=== PATIENT | male | born 1940 | race American Indian/Alaskan Native ===

== ENCOUNTER 2017-04-24 10:15 | Inpatient (IN) | payer MEDICARE ==
[2017-04-24 11:38] LABS: Basophils % (Auto) 0.6 % (0.0-1.8); Eosinophils % (Auto) 0.7 % (0.0-4.3); Hematocrit 39.4 % (35.5-45.6); Hemoglobin 13.1 gm/dl (11.8-15.2); Mean Corpuscular HGB Conc 33 % (32-34); Mean Corpuscular Hemoglobin 30 pg (28-32); Mean Corpuscular Volume 92 fl (84-94); Platelet Count 224 K/mm3 (140-440); White Blood Count 5.9 K/mm3 (4.5-11.0)
[2017-04-24 11:41] LABS: Alanine Aminotransferase 16 units/L (7-56); Albumin/Globulin Ratio 1.4 %; Alkaline Phosphatase 102 units/L (35-129); Anion Gap 17 mmol/L; BUN/Creatinine Ratio 18.33; Blood Urea Nitrogen 22 mg/dL (9-20); Calcium 8.7 mg/dL (8.4-10.2); Carbon Dioxide 26 mmol/L (22-30); Chloride 102.1 mmol/L (98-107); Glucose 98 mg/dL (75-100); Lipase 65 units/L (13-60); Potassium 3.8 mmol/L (3.6-5.0); Sodium 141 mmol/L (137-145); Total Protein 6.9 g/dL (6.3-8.2)
[2017-04-24 12:00] LABS: Bilirubin,Urine NEG (Negative); Blood,Urine NEG (Negative); Ketones,Urine NEG (Negative); Leukocyte Esterase,Urine NEG (Negative); Nitrite,Urine NEG (Negative); Protein,Urine <15 mg/dL mg/dL (Negative); Urobilinogen,Urine < 2.0 mg/dL (<2.0)
--- NOTE | 2017-04-24 14:58 | Emergency Department Report ---
HPI - General Chief Complaint: Abdominal Pain Time Seen by Provider: 04/24/17 14:51 - HPI HPI: This is a 77 year-old male presents the emergency department with 2 complaints. The first, and most concerning, complaint is left lower extremity weakness. The patient had some pain around his left knee last night but then woke up this morning and says he was unable to move it much. He attempted to stand up and/or walk and fell down secondary to the lower left extremity weakness. He denies any headache, vision change, slurred speech, facial asymmetry or any other neurological deficits. His second complaint is some lower abdominal pain. Patient says that he has a chronic history of this but it had gone away and just recently came back. He denies any nausea, vomiting, fever, dysuria or any problem with bowel movements. He has not taken anything for any of his symptoms prior to presentation. His past mental history includes osteoarthritis that required right hip replacement, borderline diabetes, history of remote prostate cancer, and hypertension. No recent travel or sick contacts at home. ED Past Medical Hx - Past Medical History Hx Hypertension: Yes Hx Diabetes: Yes (borderline) Hx of Cancer: Yes (prostate) Hx Arthritis: Yes - Surgical History Additional Surgical History: right hip replacement. left knee surgery - Social History Smoking Status: Former Smoker Substance Use Type: Alcohol - Medications Home Medications: Home Medications Medication Instructions Recorded Confirmed Last Taken Type Finasteride [Proscar] 5 mg PO QPM 04/24/17 04/24/17 04/23/17 History Losartan/Hydrochlorothiazide 1 each PO QAM 04/24/17 04/24/17 04/23/17 History [Losartan-Hctz 50-12.5 mg Tab] Tamsulosin [Flomax] 0.4 mg PO QPM 04/24/17 04/24/17 04/23/17 History ED Review of Systems ROS: Stated complaint: LT LEG/RT HIP Other details as noted in HPI Comment: All other systems reviewed and negative Constitutional: weakness. denies: chills, fever Eyes: denies: eye pain, eye discharge, vision change ENT: denies: ear pain, throat pain Respiratory: denies: cough, shortness of breath, wheezing Cardiovascular: denies: chest pain, palpitations Gastrointestinal: abdominal pain. denies: nausea, vomiting Genitourinary: denies: urgency, dysuria Musculoskeletal: arthralgia. denies: back pain Skin: denies: rash, lesions Neurological: weakness. denies: headache, numbness, paresthesias Physical Exam - Physical Exam Vital Signs: Vital Signs 04/24/17 10:53 Temperature 98.1 F Pulse Rate 63 Respiratory 18 Rate Blood Pressure 139/74 O2 Sat by Pulse 98 Oximetry Physical Exam: GENERAL: The patient is well-developed well-nourished. ENT: Normocephalic. Atraumatic. Patient has moist mucous membranes. EYES: Extraocular motions are intact. Pupils equal reactive to light bilaterally. No nystagmus. NECK: Supple. Trachea is mid line. CHEST/LUNGS: Clear to auscultation. There is no respiratory distress noted. HEART/CARDIOVASCULAR: Regular rhythm. Regular rate. There is no gallop rub or murmur. ABDOMEN: Abdomen is soft, nontender. Patient has normal bowel sounds. There is no abdominal distention. SKIN: Skin is warm and dry. NEURO: The patient is awake, alert, and oriented. The patient is cooperative. The patient has no sensory deficits. There is left lower extremity weakness. The patient is able to slightly lift the leg off of the gurney but it will hit the gurney after a very short time. The patient has normal speech. No facial asymmetry. No upper extremity pronator drift. No dysmetria. MUSCULOSKELETAL: There is no tenderness or deformity. There is no limitation range of motion. There is no evidence of acute injury. ED Course Vital Signs 04/24/17 10:53 Temperature 98.1 F Pulse Rate 63 Respiratory 18 Rate Blood Pressure 139/74 O2 Sat by Pulse 98 Oximetry ED Medical Decision Making - Lab Data Result diagrams: 04/24/17 11:06 04/24/17 11:06 - EKG Data -: EKG Interpreted by Me EKG shows normal: sinus rhythm, axis (left axis deviation), intervals, QRS complexes, ST-T waves Rate: bradycardia (50 bpm) - EKG Data When compared to previous EKG there are: previous EKG unavailable Interpretation: other (sinus bradycardia, left axis deviation) - Radiology Data Radiology results: report reviewed, image reviewed interpreted by me: Abdominal x-ray does not show any acute process. Possible constipation. CT of the head without contrast does not show any acute bleed, shift, mass. Microangiopathic and/or chronic ischemic changes. - Medical Decision Making 77-year-old male presents to the emergency department with left lower extremity weakness that started upon waking. He does have legitimate weakness to just his left lower extremity that is a muscle strength of about 2-3 out of 5. This is his only neurological deficit and on the NIH stroke scale he would be a 1. However the patient is outside of TPA window anyways as he woke up with these symptoms and there is no last time normal. CT of the head does not show any acute bleed, shift, mass or any acute process. Labs are grossly unremarkable do not show any etiology of his symptoms. He was given an aspirin after negative CT. He will be admitted to the hospital for further evaluation and possible MRI. He has been accepted for admission by the hospitalist, Dr. Garrido. - Differential Diagnosis CVA, TIA, neuropathy Critical Care Time: No Critical care attestation.: If time is entered above; I have spent that time in minutes in the direct care of this critically ill patient, excluding procedure time. ED Disposition Clinical Impression: Hypertensive urgency, Left leg weakness Disposition: OP ADMIT IP TO THIS HOSP Is pt being admited?: Yes Condition: Fair Time of Disposition: 17:37
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
[2017-04-24] MEDS ORDERED: BABY ASPIRIN PO ONE (15:47)
--- NOTE | 2017-04-24 16:01 | XRay Report ---
ABDOMEN RADIOGRAPHS INDICATION: Abdominal pain. COMPARISON: None similar. FINDINGS: Frontal supine and upright abdominal radiographs demonstrate nonobstructive bowel gas pattern. Colonic stool, most along the ascending colon. No focal suspicious calcifications or pneumatosis. Lung bases incompletely imaged. EKG lead. Right hip replacement. Numerous brachytherapy seeds. Pelvic vascular calcifications. CONCLUSION: 1. No evidence of bowel obstruction, though constipation not excluded. Please correlate. 2. Other findings, including few iatrogenic changes. Thank you for the opportunity to participate in this patient's care.
[2017-04-24] MEDS ORDERED: DULCOLAX PR PRN (16:41)
[2017-04-24] MEDS ORDERED: NORCO 5/325 PO PRN (16:41)
[2017-04-24] MEDS ORDERED: REGLAN PO PRN (16:41)
[2017-04-24] MEDS ORDERED: TYLENOL PO PRN (16:41)
[2017-04-24] MEDS ORDERED: ZOFRAN IV PRN (16:41)
[2017-04-24] MEDS ORDERED: MILK OF MAGNESIA PO PRN (16:41)
[2017-04-24] MEDS ORDERED: PHENERGAN PR PRN (16:41)
[2017-04-24] MEDS ORDERED: SODIUM CHLORIDE FLUSH SYRINGE 10 ML IV PRN (16:41)
[2017-04-24] MEDS ORDERED: PLAVIX PO ONE (16:47)
--- NOTE | 2017-04-24 16:53 | History and Physical Report ---
History of Present Illness Date of examination: 04/24/17 Chief complaint: Left leg weakness History of present illness: 77-year-old -[place] man with past medical history significant for hypertension, hyperlipidemia, diet-controlled diabetes mellitus, history of prostate cancer presented to the emergency department complaining of left-sided weakness that started this morning around 2:30 AM. Patient said his left leg was hurting since yesterday, the pain was throbbing, 10 out of 10 in intensity, with no radiation, with no aggravating or relieving factors. When he wake up around 2:30 he can't move his leg, he feel numb. Patient denied headache, chest pain, weakness in other parts of his body. REVIEW OF SYSTEMS: GENERAL: no weight change, no fatigue, no fever HEAD: no head ache EYES: no blurry vision, no acute visual loss EARS: no hearing loss, no discharge, no earache NOSE: no stuffiness, no sneezing, no discharge MOUTH, THROAT AND NECK: no bleeding gums, no sore throat, no swollen neck CARDIAC: no palpitations, no dyspnea on exertion, no orthopnea, no PND, no edema , no chest pain RESPIRATORY: no shortness of breath, no wheeze, no cough, no sputum, no hemoptysis, no asthma GI: no decreased appetite, no nausea, no vomiting, no dysphagia, no diarrhea, no constipation, no abdominal pain URINARY: no change in frequency, no urgency, no polyuria, no hematuria, no incontinence MUSCULOSKELETAL: no pain, no joint stiffness NEUROLOGIC: Numbness and weakness of the left lower extremity. HEMATOLOGIC: no anemia, no easy bruising SKIN: no rashes ENDOCRINE: no heat/cold intolerance, no polyuria, no polydipsia, no thyroid problems, no diabetes PSYCHIATRIC: no anxiety, no depression, no suicidal ideations Past History Past Medical History: diabetes, hypertension, hyperlipidemia Past Surgical History: total hip replacement, Other (left knee surgery) Social history: full code. denies: smoking, alcohol abuse, prescription drug abuse, IV drug use Family history: no significant family history Medications and Allergies Allergies Allergy/AdvReac Type Severity Reaction Status Date / Time No Known Allergies Allergy Unverified 04/24/17 10:52 Home Medications Medication Instructions Recorded Confirmed Last Taken Type Finasteride [Proscar] 5 mg PO QPM 04/24/17 04/24/17 04/23/17 History Losartan/Hydrochlorothiazide 1 each PO QAM 04/24/17 04/24/17 04/23/17 History [Losartan-Hctz 50-12.5 mg Tab] Tamsulosin [Flomax] 0.4 mg PO QPM 04/24/17 04/24/17 04/23/17 History Active Meds: Active Medications Acetaminophen (Tylenol) 650 mg PO Q4H PRN PRN Reason: Pain, Mild (1-3) Acetaminophen/Hydrocodone Bitart (Milo 5/325) 2 each PO Q6H PRN PRN Reason: Pain, Moderate (4-6) Aspirin (Aspirin) 325 mg PO QDAY JOCELYNE Bisacodyl (Dulcolax) 10 mg TX QDAY PRN PRN Reason: Constipation Clopidogrel Bisulfate (Plavix) 75 mg PO ONCE ONE Stop: 04/24/17 16:48 Docusate Sodium (Colace) 100 mg PO BID JOCELYNE Famotidine (Pepcid) 10 mg PO BID JOCELYNE Heparin Sodium (Porcine) (Heparin) 5,000 unit SUB-Q Q8HR JOCELYNE Magnesium Hydroxide (Milk Of Magnesia) 30 ml PO Q4H PRN PRN Reason: Constipation Metoclopramide HCl (Reglan) 10 mg PO Q6H PRN PRN Reason: Nausea And Vomiting Ondansetron HCl (Zofran) 4 mg IV Q8H PRN PRN Reason: N/V unrelieved by Reglan Promethazine HCl (Phenergan) 25 mg TX Q6H PRN PRN Reason: Nausea And Vomiting Simvastatin (Zocor) 20 mg PO QHS JOCELYNE Sodium Chloride (Sodium Chloride Flush Syringe 10 Ml) 10 ml INJ PRN PRN PRN Reason: LINE FLUSH Exam - Physical Exam Narrative exam: Not in cardiopulmonary distress. The patient is obese. Vital signs as documented. Head exam is unremarkable. No scleral icterus . Neck is without jugular venous distension, thyromegaly, or carotid bruits. Lungs are clear to auscultation. Cardiac exam reveals regular rate and Rhythm. First and second heart sounds normal. No murmurs, rubs or gallops. Abdominal exam reveals normal bowel sounds, no masses, no organomegaly and no aortic enlargement. Extremities are nonedematous and both femoral and pedal pulses are normal. 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 - Constitutional Vitals: Temp Pulse Resp BP Pulse Ox 97.5 F L 52 L 18 181/97 100 04/24/17 15:02 04/24/17 15:02 04/24/17 15:02 04/24/17 15:02 04/24/17 15:02 Results - Labs CBC & Chem 7: 04/24/17 11:06 04/24/17 11:06 Labs: Laboratory Last Values WBC 5.9 K/mm3 (4.5-11.0) 04/24/17 11:06 RBC 4.30 M/mm3 (3.65-5.03) 04/24/17 11:06 Hgb 13.1 gm/dl (11.8-15.2) 04/24/17 11:06 Hct 39.4 % (35.5-45.6) 04/24/17 11:06 MCV 92 fl (84-94) 04/24/17 11:06 MCH 30 pg (28-32) 04/24/17 11:06 MCHC 33 % (32-34) 04/24/17 11:06 RDW 14.0 % (13.2-15.2) 04/24/17 11:06 Plt Count 224 K/mm3 (140-440) 04/24/17 11:06 Lymph % (Auto) 22.7 % (13.4-35.0) 04/24/17 11:06 Riley % (Auto) 8.0 % (0.0-7.3) H 04/24/17 11:06 Eos % (Auto) 0.7 % (0.0-4.3) 04/24/17 11:06 Baso % (Auto) 0.6 % (0.0-1.8) 04/24/17 11:06 Lymph # 1.3 K/mm3 (1.2-5.4) 04/24/17 11:06 Riley # 0.5 K/mm3 (0.0-0.8) 04/24/17 11:06 Eos # 0.0 K/mm3 (0.0-0.4) 04/24/17 11:06 Baso # 0.0 K/mm3 (0.0-0.1) 04/24/17 11:06 Seg Neutrophils % 68.0 % (40.0-70.0) 04/24/17 11:06 Seg Neutrophils # 4.0 K/mm3 (1.8-7.7) 04/24/17 11:06 Sodium 141 mmol/L (137-145) 04/24/17 11:06 Potassium 3.8 mmol/L (3.6-5.0) 04/24/17 11:06 Chloride 102.1 mmol/L (98-107) 04/24/17 11:06 Carbon Dioxide 26 mmol/L (22-30) 04/24/17 11:06 Anion Gap 17 mmol/L 04/24/17 11:06 BUN 22 mg/dL (9-20) H 04/24/17 11:06 Creatinine 1.2 mg/dL (0.8-1.5) 04/24/17 11:06 Estimated GFR > 60 ml/min 04/24/17 11:06 BUN/Creatinine Ratio 18.33 % 04/24/17 11:06 Glucose 98 mg/dL (75-100) 04/24/17 11:06 Calcium 8.7 mg/dL (8.4-10.2) 04/24/17 11:06 Total Bilirubin 0.50 mg/dL (0.1-1.2) 04/24/17 11:06 AST 24 units/L (5-40) 04/24/17 11:06 ALT 16 units/L (7-56) 04/24/17 11:06 Alkaline Phosphatase 102 units/L (35-129) 04/24/17 11:06 Troponin T < 0.010 ng/mL (0.00-0.029) 04/24/17 15:54 Total Protein 6.9 g/dL (6.3-8.2) 04/24/17 11:06 Albumin 4.0 g/dL (3.9-5) 04/24/17 11:06 Albumin/Globulin Ratio 1.4 % 04/24/17 11:06 Lipase 65 units/L (13-60) H 04/24/17 11:06 Urine Color Yellow (Yellow) 04/24/17 Unknown Urine Turbidity Clear (Clear) 04/24/17 Unknown Urine pH 5.0 (5.0-7.0) 04/24/17 Unknown Ur Specific Phelan 1.023 (1.003-1.030) 04/24/17 Unknown Urine Protein <15 mg/dl mg/dL (Negative) 04/24/17 Unknown Urine Glucose (UA) Neg mg/dL (Negative) 04/24/17 Unknown Urine Ketones Neg mg/dL (Negative) 04/24/17 Unknown Urine Blood Neg (Negative) 04/24/17 Unknown Urine Nitrite Neg (Negative) 04/24/17 Unknown Ur Reducing Substances Not Reportable 04/24/17 Unknown Urine Bilirubin Neg (Negative) 04/24/17 Unknown Urine Ictotest Not Reportable 04/24/17 Unknown Urine Urobilinogen < 2.0 mg/dL (<2.0) 04/24/17 Unknown Ur Leukocyte Esterase Neg (Negative) 04/24/17 Unknown Urine WBC (Auto) 1.0 /HPF (0.0-6.0) 04/24/17 Unknown Urine RBC (Auto) 1.0 /HPF (0.0-6.0) 04/24/17 Unknown - Imaging and Cardiology CT Scan - head: report reviewed (no acute intracranial process identified) Assessment and Plan Assessment and plan: Left leg weakness CVA Uncontrolled hypertension Hyperlipidemia Diet-controlled diabetes mellitus type 2 - CVA workup, MRI/MRA, carotid Doppler, echo - Lipid panel - The patient on aspirin, Plavix, statin - Resume appropriate home medications DVT prophylaxis - Heparin Disposition -Admit to telemetry floor Advance Directives: Yes VTE prophylaxis?: Chemical Plan of care discussed with patient/family: Yes
[2017-04-24] MEDS ORDERED: APRESOLINE IV PRN (16:57)
[2017-04-24] MEDS ORDERED: FLOMAX PO SCH (18:00)
[2017-04-24] MEDS: PEPCID PO SCH (21:38)
[2017-04-24] MEDS: COLACE PO SCH (21:38)
[2017-04-24] MEDS: ZOCOR PO SCH (21:39)
[2017-04-24] MEDS: PROSCAR PO SCH (21:39)
[2017-04-24] MEDS: HEPARIN SUB-Q SCH (21:40)
[2017-04-25] MEDS: HEPARIN SUB-Q SCH ×3 (05:21→22:38)
[2017-04-25 06:26] LABS: Anion Gap 13 mmol/L; Blood Urea Nitrogen 21 mg/dL (9-20); Calcium 8.2 mg/dL (8.4-10.2); Carbon Dioxide 25 mmol/L (22-30); Chloride 104.8 mmol/L (98-107); Cholesterol 151 mg/dL (50-199); Glucose 103 mg/dL (75-100); HDL Cholesterol 41 mg/dL (40-59); LDL Cholesterol,Direct 92 mg/dL (50-130); Potassium 3.7 mmol/L (3.6-5.0); Sodium 139 mmol/L (137-145); Triglycerides 90 mg/dL (2-149)
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
--- NOTE | 2017-04-25 11:32 | XRay Report ---
LEFT KNEE RADIOGRAPHS INDICATION: Fall, left knee pain. COMPARISON: None similar. FINDINGS: AP, lateral and oblique left knee radiographs demonstrate moderate to severe medial compartment narrowing. Mild to moderate degenerative spurring throughout. Patellofemoral narrowing also not excluded. Prepatellar soft tissue swelling suspected, some also extending both superiorly and inferiorly. Few atherosclerotic calcifications. Possible osteopenia. CONCLUSION: No acute left knee bony abnormality with moderate degenerative changes and anterior soft tissue swelling suspected, as described. Please correlate. Thank you for the opportunity to participate in this patient's care.
--- NOTE | 2017-04-25 11:39 | Admit Criteria Form ---
Admission Criteria Documentation: NEUROLOGY GRG Clinical Indications for Admission to Inpatient Care (Place ' X' for any and all applicable criteria): Hospital admission is needed for appropriate care of the patient because of 1 or more of the following: [ ]I. Encephalitis [ ]II. Severe VENEER PATCHER infections indicated by 1 or more of the following(1)(2)(3) : [ ]a) Intracranial abscess [ ]b) Spinal abscess or myelitis [ ]c) Tuberculous or other nonbacterial, nonviral VENEER PATCHER infection(8) [ ]III. Vasculitis and 1 or more of the following(14)(15): []a) Altered mental status that is severe or persistent or other acute neurologic change []b) Psychosis []c) Seizure [ ]IV. Status epilepticus or repetitive seizures not controlled with emergent treatment [A] (7)(8) [ ]V. Altered mental status that is severe or persistent [ ]. Transient alteration in consciousness with high-risk etiology; examples include (12)(13): [ ]a) Cardiovascular source [ ]b) Cataplexy [ ]VII. Cerebral aneurysm requiring ANY ONE of the following(14): [ ]a) IV antihypertensives or vasoactive agents [ ]b) Sedation and analgesia for suspected leak [ ]c) Need for external ventricular drainage and cerebral perfusion pressure monitoring [ ]d) Emergent evaluation to determine need for surgical clipping or endovascular coiling by interventional radiology. If surgery is required ( Also use Craniotomy, Supratentorial, for Surgery of Bleeding Intracranial Aneurysm (for bleeding aneurysm) or Craniotomy, Supratentorial (for nonbleeding aneurysm) as appropriate. [ ]VIII. New-onset severe neurologic symptom requiring inpatient care indicated by ANY ONE of the following: [ ]a) Aphasia(15) [ ]b) Weakness (grade 3 or less) [ ]c) Paralysis (eg, hemiplegia) [ ]d) Spasticity(16) [ ]e) Dystonia [ ]e) Ataxia(17) [ ]f) Amnesia(18) [ ]g) Involuntary movements(19) [ ]h) Vertigo [ ] Visual loss [ ]i) Other severe neurologic finding (eg, papilledema, mass effect on imaging, myoclonus not treatable at alternative level of care (eg, observation care) [ ]IX. Guillain-Auburn syndrome(20) [ ]X. Myasthenia gravis crisis or inpatient monitoring need as indicated by 1 or more of the following(21): [ ]a) Intensive treatment (eg, course of plasmapheresis) with inadequate outpatient situation to monitor patients status [ ]b) Inadequate airway protection [ ]c) Respiratory insufficiency requiring intubation or inpatient. monitoring [ ]d) Progressive dysphagia with failure to thrive [ ]XI. Multiple sclerosis or other acute demyelinating disease requiring inpatient care as indicated by 1 or more of the following (22)(23): [ ]a) Acute severe deterioration requiring inpatient treatment (eg, IV steroids, plasmapheresis, close observation) [ ]b) Acute complication requiring inpatient care (eg, sepsis, severe decubitus, aspiration) [ ]XII.Parkinson disease requiring inpatient care (Also use Optimal Recovery Care Criteria or General Recovery Criteria as appropriate) indicated by 1 or more of the following(25): [ ]a) Infection (eg, aspiration pneumonia) not treatable at alternative level of care [ ]b Dehydration that is severe or persistent [ ]c) Life-threatening agitation or psychotic behavior not treatable on emergency, observation care, or alternative level (eg, residential) basis [ ]d) Severe medication withdrawal effects (eg, freezing, neuroleptic malignant syndrome) not responsive to emergency and observation care treatment ( as appropriate) [ ]e) Other severe manifestation not treatable at alternative level of care [ ]XII. Amyotrophic lateral sclerosis with inpatient care needs as indicated by ANY ONE of the following(26): [ ]a) Acute complications (eg, aspiration pneumonia, sepsis ) requiring inpatient care ( see other optimal Recovery Guideline as appropriate) [ ]b) Dehydration that is severe persistent AND artificial support desired [ ]c) Inadequate airway protection AND artificial support desired [ ]d) Severe ventilatory insufficiency AND artificial support desired [ ]XIII. Myasthenia gravis crisis or inpatient monitoring need as indicated by 1 or more of the following(21): [] a) Inadequate airway protection []b) Respiratory insufficiency requiring intubation or inpatient monitoring []c) Progressive dysphagia with failure to thrive []d) Intensive treatment (e.g., course of plasmapheresis) with inadequate outpatient situation to monitor patients status [ ]XIV. Multiple sclerosis or other acute demyelinating disease requiring inpatient care indicated by 1 or more of the following[C](36)(43)(44)(45)(46): []a) Acute severe deterioration requiring inpatient treatment (eg, IV steroids, plasmapheresis, close observation) []b) Acute complication requiring inpatient care (eg, sepsis, severe decubitus, aspiration) [ ]XV. Intracranial hypertension (e.g., pseudotumor cerebri) requiring inpatient care (e.g., acute visual loss, inadequate oral intake) (47)(48)(49) [ ]XVI. Parkinson disease requiring inpatient care (Also use Optimal Recovery Care Criteria or General Recovery Criteria as appropriate) indicated by 1 or more of the following(25): [] a) Infection (e.g., aspiration pneumonia) not treatable at alternative level of care []b) Volume depletion not responsive to emergency and observation care treatment (as appropriate) []c) Life-threatening agitation or psychotic behavior not treatable on emergency, observation care, or alternative level (e.g., residential) basis []d) Severe medication withdrawal effects (e.g., freezing, neuroleptic malignant syndrome) not responsive to emergency and observation care treatment (as appropriate) []e) Other severe manifestation not treatable at alternative level of care [ ]XVII. Amyotrophic lateral sclerosis with inpatient care needs as indicated by1 or more of the following(42): []a) Acute complications (eg, aspiration pneumonia, sepsis) requiring inpatient care (see other Optimal Recovery Guideline or General Recovery Guideline as appropriate) []b) Dehydration that is severe or persistent AND artificial support desired []c) Inadequate airway protection AND artificial support desired []d) Severe ventilatory insufficiency AND artificial support desired [ ]XVIII. Severe myopathy, neuropathy, or other neuromuscular disease indicated by 1 or more of the following(42)(52)(53)(54): []a ) New-onset severe diffuse weakness (eg, strength 3/5 or less) []b) Severe dysphagia []c) Dyspnea at rest or with minimal exertion (new) []d) Inadequate airway protection []e) Inadequate ventilation indicated by 1 or more of the following : i) Partial pressure of carbon dioxide greater than 44 mm Hg ( 5.9 kPa) (new) ii) Reduced peak expiratory flow rate (new) iii) Vital capacity less than 50% of predicted (less than 15 mL/kg) iv) Peak inspiratory force less negative than -30 cm H2O (- 2942 Pa) [ ]XVII.Complications of congenital or degenerative disease (eg, infection, seizures, dehydration, injury) not responsive to emergency and observation care treatment (as appropriate ) [C](16)(29)(30) [ ]XVIII.Suspected or confirmed nerve or muscle toxic injury, including ANY ONE of the following: [ ]a) Rhabdomyolysis(31) i) Acute renal failure ii) Dehydration that is severe or persistent iii) Altered mental status that is severe or persistent iv) Electrolyte abnormality that remains after emergency or observation level care ( as appropriate) [ ]b) Botulism(32) [ ]c) Other severe toxin-induced sign or symptom [ ]XIX. Neurologic trauma requiring inpatient treatment (medical) indicated by ANY ONE of the following(33)(34): [ ]a) Vital signs or neurologic signs more frequently than every 4 hours [ ]b) Hyperosmolar therapy [ ]c) Respiratory monitoring [ ]d) Intracranial pressure monitoring and treatment [ ]e) Stabilization and immobilization device placement (eg, braces, body jacket) [ ]f) Intubation & mechanical ventilation for airway protection or therapeutic hyperventilation [ ]g) Other treatment or monitoring needed that requires inpatient level of care [ ]XX.Complications of neurologic devices (eg, ventricular shunt, neurostimulator) requiring 1 or more of the following(35)(36): [ ]a) IV antibiotics with monitoring while awaiting culture results [ ]b) Monitoring for hydrocephalus [X ]XXI. Neurology condition symptom, or finding for which emergency and observation care have failed or are not considered appropriate. See General Criteria: Observation Care ISC, General Admission Criteria GRG, or Pediatric General Admission Criteria GRG guideline as appropriate. The original [facility] [employer] content created by [facility] has been revised. The portions of the content which have been revised are identified through the use of italic text or in bold, and [facility] has neither reviewed nor approved the modified material. All other unmodified content is copyright [facility] Please see references footnoted in the original [facility] edition 2016 Admission Criteria Met: Yes
[2017-04-25] MEDS ORDERED: Fluarix Quad 2017-2018(36 MOS+) IM ONE (12:00)
[2017-04-25] MEDS: COLACE PO SCH ×2 (12:36→21:39)
[2017-04-25] MEDS: PEPCID PO SCH ×2 (12:36→21:39)
[2017-04-25] MEDS: ASPIRIN PO SCH (12:36)
[2017-04-25] MEDS: FLOMAX PO SCH (12:43)
--- NOTE | 2017-04-25 13:20 | Consultation ---
History of Present Illness - Reason for Consult Consult date: 04/25/17 stroke - History of Present Illness patient seen and plan to check the MRI the CT of brain shows small vessel disease rec statin and aspirin HTN control Past History Past Medical History: diabetes, hypertension, hyperlipidemia Past Surgical History: total hip replacement, Other (left knee surgery) Social history: full code. denies: smoking, alcohol abuse, prescription drug abuse, IV drug use Family history: no significant family history Medications and Allergies Allergies Allergy/AdvReac Type Severity Reaction Status Date / Time No Known Allergies Allergy Unverified 04/24/17 10:52 Home Medications Medication Instructions Recorded Confirmed Last Taken Type Finasteride [Proscar] 5 mg PO QPM 04/24/17 04/24/17 04/23/17 History Losartan/Hydrochlorothiazide 1 each PO QAM 04/24/17 04/24/17 04/23/17 History [Losartan-Hctz 50-12.5 mg Tab] Tamsulosin [Flomax] 0.4 mg PO QPM 04/24/17 04/24/17 04/23/17 History Active Meds: Active Medications Acetaminophen (Tylenol) 650 mg PO Q4H PRN PRN Reason: Pain, Mild (1-3) Acetaminophen/Hydrocodone Bitart ([place] 5/325) 2 each PO Q6H PRN PRN Reason: Pain, Moderate (4-6) Aspirin (Aspirin) 325 mg PO QDAY [facility] Last Admin: 04/25/17 12:36 Dose: 325 mg Bisacodyl (Dulcolax) 10 mg [place] QDAY PRN PRN Reason: Constipation Docusate Sodium (Colace) 100 mg PO BID [facility] Last Admin: 04/25/17 12:36 Dose: 100 mg Famotidine (Pepcid) 10 mg PO BID [facility] Last Admin: 04/25/17 12:36 Dose: 10 mg Finasteride (Proscar) 5 mg PO QPM [facility] Last Admin: 04/24/17 21:39 Dose: 5 mg Heparin Sodium (Porcine) (Heparin) 5,000 unit SUB-Q Q8HR [facility] Last Admin: 04/25/17 05:21 Dose: 5,000 unit Hydralazine HCl (Apresoline) 10 mg IV Q4H PRN PRN Reason: Hypertension Magnesium Hydroxide (Milk Of Magnesia) 30 ml PO Q4H PRN PRN Reason: Constipation Metoclopramide HCl (Reglan) 10 mg PO Q6H PRN PRN Reason: Nausea And Vomiting Ondansetron HCl (Zofran) 4 mg IV Q8H PRN PRN Reason: N/V unrelieved by Reglan Promethazine HCl (Phenergan) 25 mg IA Q6H PRN PRN Reason: Nausea And Vomiting Simvastatin (Zocor) 20 mg PO QHS [facility] Last Admin: 04/24/17 21:39 Dose: 20 mg Sodium Chloride (Sodium Chloride Flush Syringe 10 Ml) 10 ml IV PRN PRN PRN Reason: LINE FLUSH Tamsulosin HCl (Flomax) 0.4 mg PO [facility] Last Admin: 04/25/17 12:43 Dose: 0.4 mg Exam - Constitutional Vitals: Temp Pulse Resp BP Pulse Ox 98.8 F 54 L 20 131/60 98 04/25/17 05:37 04/25/17 08:00 04/25/17 05:37 04/25/17 05:37 04/25/17 05:37 Results - Labs CBC & Chem 7: 04/24/17 11:06 04/25/17 05:38 Labs: Abnormal lab results 04/25/17 Range/Units 05:38 BUN 21 H (9-20) mg/dL Glucose 103 H (75-100) mg/dL Calcium 8.2 L (8.4-10.2) mg/dL
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
--- NOTE | 2017-04-25 16:02 | Consultation ---
History of Present Illness - Reason for Consult Consult date: 04/25/17 stroke - History of Present Illness came back to check reports of carotid u/s Past History Past Medical History: diabetes, hypertension, hyperlipidemia Past Surgical History: total hip replacement, Other (left knee surgery) Social history: full code. denies: smoking, alcohol abuse, prescription drug abuse, IV drug use Family history: no significant family history Medications and Allergies Allergies Allergy/AdvReac Type Severity Reaction Status Date / Time No Known Allergies Allergy Unverified 04/24/17 10:52 Home Medications Medication Instructions Recorded Confirmed Last Taken Type Finasteride [Proscar] 5 mg PO QPM 04/24/17 04/24/17 04/23/17 History Losartan/Hydrochlorothiazide 1 each PO QAM 04/24/17 04/24/17 04/23/17 History [Losartan-Hctz 50-12.5 mg Tab] Tamsulosin [Flomax] 0.4 mg PO QPM 04/24/17 04/24/17 04/23/17 History Active Meds: Active Medications Acetaminophen (Tylenol) 650 mg PO Q4H PRN PRN Reason: Pain, Mild (1-3) Acetaminophen/Hydrocodone Bitart ([place] 5/325) 2 each PO Q6H PRN PRN Reason: Pain, Moderate (4-6) Aspirin (Aspirin) 325 mg PO QDAY [facility] Last Admin: 04/25/17 12:36 Dose: 325 mg Bisacodyl (Dulcolax) 10 mg HI QDAY PRN PRN Reason: Constipation Docusate Sodium (Colace) 100 mg PO BID [facility] Last Admin: 04/25/17 12:36 Dose: 100 mg Famotidine (Pepcid) 10 mg PO BID [facility] Last Admin: 04/25/17 12:36 Dose: 10 mg Finasteride (Proscar) 5 mg PO QPM [facility] Last Admin: 04/24/17 21:39 Dose: 5 mg Heparin Sodium (Porcine) (Heparin) 5,000 unit SUB-Q Q8HR [facility] Last Admin: 04/25/17 05:21 Dose: 5,000 unit Hydralazine HCl (Apresoline) 10 mg IV Q4H PRN PRN Reason: Hypertension Magnesium Hydroxide (Milk Of Magnesia) 30 ml PO Q4H PRN PRN Reason: Constipation Metoclopramide HCl (Reglan) 10 mg PO Q6H PRN PRN Reason: Nausea And Vomiting Ondansetron HCl (Zofran) 4 mg IV Q8H PRN PRN Reason: N/V unrelieved by Reglan Promethazine HCl (Phenergan) 25 mg HI Q6H PRN PRN Reason: Nausea And Vomiting Simvastatin (Zocor) 20 mg PO QHS [facility] Last Admin: 04/24/17 21:39 Dose: 20 mg Sodium Chloride (Sodium Chloride Flush Syringe 10 Ml) 10 ml IV PRN PRN PRN Reason: LINE FLUSH Tamsulosin HCl (Flomax) [facility] [place] [facility] Last Admin: 04/25/17 12:43 Dose: 0.4 mg Exam - Constitutional Vitals: Temp Pulse Resp BP Pulse Ox 97.6 F 66 20 139/64 96 04/25/17 11:50 04/25/17 11:50 04/25/17 11:50 04/25/17 11:50 04/25/17 11:50 Results - Labs CBC & Chem 7: 04/24/17 11:06 04/25/17 05:38 Labs: Abnormal lab results 04/25/17 Range/Units 05:38 BUN 21 H (9-20) mg/dL Glucose 103 H (75-100) mg/dL Calcium 8.2 L (8.4-10.2) mg/dL
[2017-04-25] MEDS: PROSCAR PO SCH (17:58)
[2017-04-25] MEDS: ZOCOR PO SCH (21:39)
[2017-04-26] MEDS: HEPARIN SUB-Q SCH (06:50)
[2017-04-26 08:08] VITALS: BP 117/66
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
[2017-04-26] MEDS: ASPIRIN PO SCH (12:51)
[2017-04-26] MEDS: FLOMAX PO SCH (12:51)
[2017-04-26] MEDS: PEPCID PO SCH (12:51)
[2017-04-26] MEDS: COLACE PO SCH (12:52)
--- NOTE | 2017-04-29 09:24 | Vascular Lab Report ---
CAROTID DUPLEX STUDY: RIGHT PSVEDV CCA PROX: 8812 CCA DIST: 6513 ICA PROX: 6210 ICA MID: 5312 ICA DIST: 5319 ECA: 47 VERT: 35 7 LEFT PSVEDV CCA PROX:34125 CCA DIST: 6211 ICA PROX: 4917 ICA MID: 6514 ICA DIST: 7122 ECA: 76 VERT: 40 8 REASON FOR EXAM: Stroke. COMMENTS ON THE RIGHT: Doppler frequency analysis is consistent with 16 to 49 percent diameter reduction of the internal carotid artery. Minimal amount of plaque is seen. The common carotid artery is patent. The external carotid artery is patent. The vertebral artery has antegrade flow. COMMENTS ON THE LEFT: Doppler frequency analysis is consistent with 16 to 49 percent diameter reduction of the internal carotid artery. Minimal amount of plaque is seen. The common carotid artery is patent. The external carotid artery is patent. The vertebral artery has antegrade flow. IMPRESSION: Less than 50% diameter reduction in the internal carotid arteries bilaterally. Consider repeat carotid artery duplex in 12 months.
== END 2017-04-26 13:45 | disposition home health service (06) | DRG 66 ==
LOC: ED 10:15 → 4A 16:42
PROVIDERS: ADMIT Internal Medicine; ATTEND Internal Medicine
PROC: 3E0234Z Introduction of Serum, Toxoid and Vaccine into Muscle, Percutaneous Approach (ICD-10-PCS; principal; 2017-04-25)
DX: I63.9 Cerebral infarction, unspecified (principal); E78.5 Hyperlipidemia, unspecified; I16.0 Hypertensive urgency; E11.9 Type 2 diabetes mellitus without complications; M19.90 Unspecified osteoarthritis, unspecified site; Z96.641 Presence of right artificial hip joint; Z23 Encounter for immunization; Z79.899 Other long term (current) drug therapy; Z85.46 Personal history of malignant neoplasm of prostate; Z87.891 Personal history of nicotine dependence
CPT/HCPCS: 36415; 70450; 71020; 74020; 80048; 80053; 80061; 81001; 83036; 83690; 84484; 85025; 90686; 93005; 93010; 93306; 93880; G8978-GP; G8979-GP; J1644

== ENCOUNTER 2018-05-20 12:46 | Emergency (ER) | payer MEDICARE ==
[2018-05-20 12:55] VITALS: BP 136/53
[2018-05-20] MEDS ORDERED: MOTRIN PO ONE (14:43)
[2018-05-20] MEDS ORDERED: THERMAZENE 50 GRAM TP ONE (14:43)
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
== END 2018-05-20 16:04 | disposition home or self-care (01) ==
LOC: ED 12:46
DX: T23.201A Burn of second degree of right hand, unspecified site, initial encounter (principal); X19.XXXA Contact with other heat and hot substances, initial encounter; Y93.89 Activity, other specified; Y92.89 Other specified places as the place of occurrence of the external cause; Y99.8 Other external cause status

== ENCOUNTER 2019-03-03 19:55 | Inpatient (IN) | payer MEDICARE ==
--- NOTE | 2019-03-03 20:23 | Consultation ---
History of Present Illness History of present illness: [facility] Impression: Patient with worsening LLE weakness and burning sensation in the LLE. Given density of weakness, will get CTA to rule out LVO of the right ASHLEY. Burning sensation might argue for a peripheral etiology, as well. Not a tpa candidate due to: out of window Differential Diagnosis: 1. Cardioembolic stroke 2. Small vessel disease/lacune 3. Thromboembolic, [id number] mechanism 4. Hypercoagulable state-related infarct 5. Transient ischemic attack 6. Thrombotic mechanism, large artery disease Comments: Door time: 1954 [facility] contacted: 1948 [facility] at bedside: 1952 NIHSS assessment time: 2014 (pt went to CT on arrival) Recommendations: CTA head/neck for LVO evaluation inpatient neurology consultation Inpatient stroke evaluation as per Neurology/ Internal Medicine Discussed with ED MD CC: stroke alert History of Present Illness Patient is a79 year old man with a history of HTN, HLD, stroke with residual left-sided weakness/numbness who presents with worsening LLE weakness. He states he was last baseline around 1400, then thereafter started to develop gradually worsening weakness in the LLE to where he couldn't move it at all. He is also noting a burning sensation in the LLE. No other new deficits. Diagnostic: CT head wo - nothing acute Exam: NIHSS score: 5 Medical Decision Making: - Extensive number of diagnosis or management options are considered above. - Extensive amount of complex data reviewed. - High risk of complication and/or morbidity or mortality are associated with differential diagnostic considerations above. - There may be Uncertain outcome and increased probability of prolonged functional impairment or high probability of severe prolonged functional impairment associated with some of these differential diagnosis. Medical Data Reviewed: 1.Data reviewed include clinical labs, radiology, Medical Tests; 2.Tests results discussed w/performing or interpreting physician; 3.Obtaining/reviewing old medical records; 4.Obtaining case history from another source; 5.Independent review of image, tracing or specimen. Patient was informed the Neurology Consult would happen via TeleHealth consult by way of interactive audio and video telecommunications and consented to receiving care in this manner. Medications and Allergies Allergies Allergy/AdvReac Type Severity Reaction Status Date / Time No Known Allergies Allergy Verified 05/20/18 12:53 Home Medications Medication Instructions Recorded Confirmed Last Taken Type Aspirin 81 mg PO DAILY #30 tab.chew 04/26/17 12/28/18 Unknown Rx AtorvaSTATin [Lipitor] 40 mg PO QHS #30 tab 04/26/17 Unknown Rx Clopidogrel Bisulfate [Plavix] 75 mg PO DAILY #30 tablet 04/26/17 12/28/18 Unknown Rx Finasteride [Proscar] 5 mg PO QPM #30 tablet 04/26/17 12/28/18 Unknown Rx Tamsulosin [Flomax] 0.4 mg PO QPM #30 capsule 04/26/17 Unknown Rx Clindamycin [Clindamycin CAP] 300 mg PO Q8H 7 Days cap 05/20/18 Unknown Rx HYDROcodone/APAP 5-325 [[place] 1 each PO Q6HR PRN #15 tablet 05/20/18 12/28/18 Unknown Rx 5/325] - Level of Consciousness 1a. Level of Consciousness: alert/keenly responsive - LOC Questions 1b. LOC Questions: answers both correctly - LOC Command 1c. LOC Commands: performs tasks correctly - Best Gaze 2. Best Gaze: normal - Visual 3. Visual: no visual loss - Facial Palsy 4. Facial Palsy: normal symmetrical movement - Motor Arm 5a. Motor Arm Left: no drift 5b. Motor Arm Right: no drift - Motor Leg 6a. Motor Leg Left: no drift 6b. Motor Leg Right: no movement - Limb Ataxia 7. Limb Ataxia: absent - Sensory 8. Sensory: mild/moderate sensory loss - Best Language 9. Best Language: no aphasia - Dysarthria 10. Dysarthria: normal - Extinction and Inattention 11. Extinction/Inattention: no abnormality - Scoring Total Score: 5 Stroke Severity: Moderate Stroke Results - Laboratory Findings Abnormal Lab Findings: Abnormal Labs 03/03/19 20:12 POC Glucose 115 H
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
[2019-03-03 20:43] LABS: Basophils % (Auto) 0.9 % (0.0-1.8); Eosinophils # (Auto) 0.1 K/mm3 (0.0-0.4); Hematocrit 37.5 % (35.5-45.6); Hemoglobin 12.6 gm/dl (11.8-15.2); Lymphocytes # (Auto) 1.5 K/mm3 (1.2-5.4); Lymphocytes % (Auto) 26.6 % (13.4-35.0); Mean Corpuscular HGB Conc 34 % (32-34); Mean Corpuscular Volume 93 fl (84-94); Monocytes # (Auto) 0.5 K/mm3 (0.0-0.8); Monocytes % (Auto) 9.9 % (0.0-7.3); Platelet Count 201 K/mm3 (140-440); Red Blood Count 4.05 M/mm3 (3.65-5.03); Red Cell Distribution Width 13.8 % (13.2-15.2)
[2019-03-03 20:56] LABS: INR 0.97 (0.87-1.13)
[2019-03-03 20:57] LABS: Partial Thromboplastin Time 25.5 Sec. (24.2-36.6)
[2019-03-03 21:24] LABS: BUN/Creatinine Ratio 19; Blood Urea Nitrogen 25 mg/dL (9-20); Hemolysis Index 24
--- NOTE | 2019-03-03 21:27 | Cat Scan Report ---
PROCEDURE: CT ANGIO HEAD TECHNIQUE: Computerized tomographic angiography of the head was performed during the IV injection of iodinated nonionic contrast including image processing. The image data was postprocessed using 2-di mensional multiplanar reformatted (MPR) and 3-dimensional (MIP and/or volume rendered) techniques. CT DOSE LENGTH PRODUCT: 882.7 mGycm HISTORY: stroke alert COMPARISONS: None . FINDINGS: Visualized vertebral arteries are patent. There is a dominant left vertebral artery, normal variant. Basilar artery appears widely patent. Posterior cerebral arteries bilaterally appear widely patent. T here is persistent circulation of the right posterior cerebral artery. Normal variant. Visualiz ed internal carotid arteries are widely patent. There is minimal calcified plaquing in the right jacob tid siphon without significant stenosis. The A1 segments bilaterally are patent. There is a very smal l right A1 segment, there is a dominant left A1 segment. There does appear to be a patent anterior co mmunicating artery. I suspect the veins of either the anterior cerebral arteries is via the left A1 s egment. Normal variant. The middle cerebral arteries bilaterally appear widely patent. There are no change is seen that would suggest aneurysm or vascular malformation. No abnormal enhancing lesions are identified. IMPRESSION: Anterior and posterior circulation are intact as described. Please see above comments.. This document is electronically signed by Reagan Soares MD., March 03 2019 09:25:36 PM ET
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
[2019-03-03] MEDS ORDERED: BABY ASPIRIN PO ONE (22:42)
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
[2019-03-03] MEDS ORDERED: ASPIRIN ONE (23:32)
[2019-03-03] MEDS ORDERED: REGLAN PO PRN (23:57)
[2019-03-03] MEDS ORDERED: DULCOLAX PR PRN (23:57)
[2019-03-03] MEDS ORDERED: TYLENOL PO PRN (23:57)
[2019-03-03] MEDS ORDERED: SODIUM CHLORIDE FLUSH SYRINGE 10 ML IV PRN (23:57)
[2019-03-03] MEDS ORDERED: ZOFRAN IV PRN (23:57)
[2019-03-03] MEDS ORDERED: MILK OF MAGNESIA PO PRN (23:57)
[2019-03-04 06:02] LABS: Chol/HDL Ratio 2.8 %
[2019-03-04] MEDS ORDERED: NON-FORMULARY (Gabapentin 300 MG) PO SCH (10:00)
[2019-03-04] MEDS ORDERED: NON-FORMULARY (Famotidine [Pepcid] 40 MG) PO SCH (10:00)
[2019-03-04] MEDS ORDERED: ASPIRIN PO SCH (10:00)
[2019-03-04] MEDS ORDERED: LOVENOX SUB-Q SCH (10:00)
[2019-03-04] MEDS ORDERED: OXYBUTYNIN 10 MG PO SCH (10:00)
[2019-03-04] MEDS: PLETAL PO SCH ×2 (10:10→21:29)
[2019-03-04] MEDS: DITROPAN PO SCH ×2 (10:11→21:34)
[2019-03-04] MEDS: PLAVIX PO SCH (10:11)
[2019-03-04] MEDS: NEURONTIN PO SCH ×2 (10:11→21:29)
[2019-03-04] MEDS: PEPCID PO SCH (10:11)
[2019-03-04] MEDS: LOVENOX SUB-Q SCH (10:11)
[2019-03-04] MEDS ORDERED: VITAMIN B-6 PO SCH (14:00)
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
[2019-03-04] MEDS ORDERED: PROSCAR PO SCH ×2 (18:00→22:00)
[2019-03-04] MEDS ORDERED: FLOMAX PO SCH ×2 (18:00→22:00)
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
[2019-03-04] MEDS ORDERED: DITROPAN PO SCH (22:00)
[2019-03-05] MEDS: PEPCID PO SCH (09:38)
[2019-03-05] MEDS: LOVENOX SUB-Q SCH (09:38)
[2019-03-05] MEDS: NEURONTIN PO SCH (09:38)
[2019-03-05] MEDS: PLAVIX PO SCH (09:38)
[2019-03-05] MEDS: PLETAL PO SCH (09:38)
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
--- NOTE | 2019-03-05 14:37 | Vascular Lab Report ---
PROCEDURE: Venous duplex imaging right and left lower extremities TECHNIQUE: 2-D imaging, pulsed Doppler imaging and color flow Doppler imaging was utilized to evalua te the deep venous system of the right and left lower extremity. HISTORY: pulseless lower legs, pain left calf with testing COMPARISONS: None FINDINGS: FINDINGS: Right: Common femoral veins: Normal. Superficial femoral veins: Normal. Popliteal veins: Normal. Soft tissue abnormality: None. Other: None. Left: Common femoral veins: Normal. Superficial femoral veins: Normal. Popliteal veins: Normal Soft tissue abnormality: None. Other: None. IMPRESSION: No evidence of deep venous thrombosis. . This document is electronically signed by Reagan Soares MD., March 05 2019 02:35:46 PM ET
--- NOTE | 2019-03-05 15:01 | Vascular Lab Report ---
PROCEDURE: VL ARTERIAL DUPLEX LE BILAT TECHNIQUE: Arterial duplex Doppler of lower extremities. HISTORY: pulseless lower legs, pain left calf with testing COMPARISON: None FINDINGS: There is atherosclerotic plaque involving bilateral lower extremity arteries. On the right vessels appear patent. There is triphasic flow from distal external iliac artery to the proximal SFA deep femoral artery. There is biphasic flow from mid to distal SFA to the posterior tibi al artery. There is monophasic flow in right anterior tibial artery and dorsalis pedis artery. There are no abnormal elevations of flow velocity on the right indicate significant arterial stenosis. On the left side there is triphasic flow in the distal external iliac common femoral artery. There is predominantly biphasic flow from proximal SFA to the posterior tibial and dorsalis pedis arteries. T here is no abnormal elevation of flow velocity to indicate a focal stenosis. IMPRESSION: Calcified patent vasculature without evidence of focal stenosis. There is some monophasi c flow distally on the right suggesting moderate distal arterial disease. This document is electronically signed by Rosamaria Reardon MD., March 05 2019 03:00:03 PM ET
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
[2019-03-05 17:03] VITALS: BP 134/78
[2019-03-09 12:21] LABS: Vitamin D, 25-OH, D2 <4 ng/mL
== END 2019-03-05 19:01 | disposition home or self-care (01) | DRG 65 ==
LOC: ED 19:55 → 4A 22:58
PROVIDERS: ADMIT Internal Medicine; ATTEND Internal Medicine
DX: I63.9 Cerebral infarction, unspecified (principal); G81.94 Hemiplegia, unspecified affecting left nondominant side; I10 Essential (primary) hypertension; Z96.641 Presence of right artificial hip joint; E11.51 Type 2 diabetes mellitus with diabetic peripheral angiopathy without gangrene; N40.0 Benign prostatic hyperplasia without lower urinary tract symptoms; E11.40 Type 2 diabetes mellitus with diabetic neuropathy, unspecified; Z85.46 Personal history of malignant neoplasm of prostate; Z82.49 Family history of ischemic heart disease and other diseases of the circulatory system; Z79.899 Other long term (current) drug therapy; Z79.82 Long term (current) use of aspirin; Z83.3 Family history of diabetes mellitus
CPT/HCPCS: 36415; 70450; 70496; 70498; 80048; 80061; 82306; 82607; 82747; 82962; 84425; 84439; 84443; 84480; 84484; 85025; 85610; 85670; 85730; 93005; 93010; 93306; 93925; 93970; 99285; G0378; A9270-GY; J1650; Q9967

== ENCOUNTER 2019-10-28 20:21 | Emergency (ER) | payer MEDICARE ==
[2019-10-28 20:33] VITALS: BP 144/80
== END 2019-10-29 01:30 | disposition left against medical advice (07) ==
LOC: ED 20:21
DX: M79.645 Pain in left finger(s) (principal); Z53.21 Procedure and treatment not carried out due to patient leaving prior to being seen by health care provider

== ENCOUNTER 2020-08-10 13:18 | Emergency (ER) | payer MEDICARE ==
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
[2020-08-10 15:48] LABS: Bilirubin,Urine NEG (Negative); Blood,Urine NEG (Negative); Color,Urine Straw (Yellow); Urobilinogen,Urine < 2.0 mg/dL (<2.0)
[2020-08-10 16:15] LABS: Basophils % (Auto) 0.8 % (0.0-1.8); Eosinophils % (Auto) 0.8 % (0.0-4.3); Hemoglobin 13.8 gm/dl (11.8-15.2); Lymphocytes % (Auto) 20.2 % (13.4-35.0); Mean Corpuscular HGB Conc 34 % (32-34); Mean Corpuscular Volume 92 fl (84-94); Monocytes # (Auto) 0.5 K/mm3 (0.0-0.8); Platelet Count 201 K/mm3 (140-440); Red Blood Count 4.46 M/mm3 (3.65-5.03); Red Cell Distribution Width 14.4 % (13.2-15.2)
[2020-08-10 16:30] LABS: Alanine Aminotransferase 15 units/L (7-56); Albumin 3.8 g/dL (3.9-5); BUN/Creatinine Ratio 17; Blood Urea Nitrogen 19 mg/dL (9-20); Calcium 9.4 mg/dL (8.4-10.2); Hemolysis Index 2
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
[2020-08-10 16:41] LABS: Chol/HDL Ratio 3.78 %; HDL Cholesterol 51 mg/dL (40-59); LDL Cholesterol,Direct 130 mg/dL (50-130)
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
[2020-08-10 18:43] LABS: INR 0.89 (0.87-1.13)
[2020-08-10 18:45] LABS: Partial Thromboplastin Time 28.2 Sec. (24.2-36.6)
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
[2020-08-11 03:12] VITALS: BP 143/77
== END 2020-08-11 01:20 | disposition admitted as inpatient to this hospital (09) ==
LOC: ED 13:18
DX: M25.562 Pain in left knee (principal); M25.552 Pain in left hip; M54.5 Low back pain; R07.89 Other chest pain; R10.30 Lower abdominal pain, unspecified; I10 Essential (primary) hypertension; E11.9 Type 2 diabetes mellitus without complications; M19.91 Primary osteoarthritis, unspecified site; Z86.73 Personal history of transient ischemic attack (TIA), and cerebral infarction without residual deficits; Z98.890 Other specified postprocedural states; Z87.891 Personal history of nicotine dependence; Z79.899 Other long term (current) drug therapy; V49.49XA Driver injured in collision with other motor vehicles in traffic accident, initial encounter; W22.10XA Striking against or struck by unspecified automobile airbag, initial encounter; Y93.89 Activity, other specified; Y92.410 Unspecified street and highway as the place of occurrence of the external cause; Y99.8 Other external cause status
CPT/HCPCS: 36415; 70450; 71260; 72125; 73590; 74177; 80053; 80061; 81001; 82550; 82553; 84484; 85025; 85610; 85730; 93005; 99285; Q9967

== ENCOUNTER 2020-11-23 13:55 | Emergency (ER) | payer MEDICARE ==
--- NOTE | 2020-11-23 14:28 | Event Note ---
ED Screening Note Date of service: 11/23/20 Time: 14:26 ED Screening Note: Patient complains of fall with head injury today Also complains of dizziness Denies loss of consciousness + Cervical tenderness Patient states he is on blood thinners + Low back pain Age 80 This initial assessment/diagnostic orders/clinical plan/treatment(s) is/are subject to change based on patients health status, clinical progression and re- assessment by fellow clinical providers in the ED. Further treatment and workup at subsequent clinical providers discretion. Patient/guardian urged not to elope from the ED as their condition may be serious if not clinically assessed and managed. Initial orders include: X-ray CT head and neck
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
[2020-11-23 18:37] VITALS: BP 146/71
== END 2020-11-23 18:00 | disposition home or self-care (01) ==
LOC: ED 13:55
DX: S09.90XA Unspecified injury of head, initial encounter (principal); M54.5 Low back pain; I10 Essential (primary) hypertension; E11.9 Type 2 diabetes mellitus without complications; M19.91 Primary osteoarthritis, unspecified site; Z86.73 Personal history of transient ischemic attack (TIA), and cerebral infarction without residual deficits; Z98.890 Other specified postprocedural states; Z79.899 Other long term (current) drug therapy; W01.0XXA Fall on same level from slipping, tripping and stumbling without subsequent striking against object, initial encounter; Y93.89 Activity, other specified; Y92.009 Unspecified place in unspecified non-institutional (private) residence as the place of occurrence of the external cause; Y99.8 Other external cause status
CPT/HCPCS: 70450; 72100; 72125

== ENCOUNTER 2021-04-23 11:12 | Outpatient (CLI) | payer MEDICARE | END 2021-04-23 11:13 | disposition home or self-care (01) | LOC: VAS 11:12 ==